=== PATIENT | male | born 1960 | race Caucasian/White ===

== ENCOUNTER → 2017-01-15 | Outpatient (CLI) | payer BC ==
[~2017-01-15] MED LIST: ALEV220C2 PO; BABY81CH OR; CARA1SUS OR; DARV100T OR; HYDR25TA6 OR; HYZA100T6 PO; HYZAAR OR; LOPR100T OR; METO10TA2 OR; OMEP20TA7 OR; OMEP40CA2 PO; POTA10CA PO; PRIL40CA OR; ZANTTAB9 PO
[2017-01-15 10:48] LABS: MEAN CORPUSCULAR HEMOGLOBIN 30.5 pg (27.0-33.0); MEAN CORPUSCULAR HGB CONC 34.3 g/dl (32.0-36.5); RED CELL DISTRIBUTION WIDTH 13.2 % (11.5-14.5); WHITE BLOOD COUNT 6.4 K/mm3 (4.0-10.0)
[2017-01-15 10:54] LABS: INR 0.98
[2017-01-15 11:07] LABS: ALBUMIN 4.6 GM/DL (3.2-5.2); ALBUMIN/GLOBULIN RATIO 1.39 (1.00-1.93); ALKALINE PHOSPHATASE 79 U/L (45-117); ALT/SGPT 117 U/L (12-78); ANION GAP 9 MEQ/L (8-16); AST/SGOT 48 U/L (15-37); BILIRUBIN,TOTAL 0.5 MG/DL (0.2-1.0); BLOOD UREA NITROGEN 20 MG/DL (7-18); CALCIUM LEVEL 9.1 MG/DL (8.5-10.1); CARBON DIOXIDE LEVEL 29 MEQ/L (21-32); CHLORIDE LEVEL 104 MEQ/L (98-107); GLOMERULAR FILTRATION RATE > 60.0 (>56); GLUCOSE, FASTING 108 MG/DL (70-105); POTASSIUM SERUM 3.9 MEQ/L (3.5-5.1); SODIUM LEVEL 142 MEQ/L (136-145); TOTAL PROTEIN 7.9 GM/DL (6.4-8.2)
--- NOTE | 2017-01-15 11:45 | REP ---
Reason: Sleep apnea, gastroesophageal reflux, hypertension. COMPARISON: 02/12/2011, the latest prior. The lung wilks and cardiomediastinal silhouette are unchanged showing no evidence of an acute patchy parenchymal opacity or pleural effusion. The heart is not enlarged. There is no change in the osseous structures. IMPRESSION: No evidence of acute cardiopulmonary disease. No significant change from the prior exam. Bilateral pleural thickening is noted status quo. Signed by Ganga Christensen DO 01/15/2017 11:51 A
--- NOTE | 2017-01-15 13:00 | ECGEPIP ---
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
== END ==
LOC: M ADMPAT 09:19
PROVIDERS: ATTEND Orthopaedic Surgery
DX: Z01.818 Encounter for other preprocedural examination (principal)

== ENCOUNTER 2017-01-27 05:43 | Inpatient (IN) | payer BC ==
[2017-01-15 10:25] VITALS: BP 140/90
--- NOTE | 2017-01-23 14:21 | HPE ---
DATE OF ADMISSION: 01/27/2017 CHIEF COMPLAINT: Right hip pain. HISTORY: This is a pleasant 56-year-old male patient with progressively worsening right hip pain and stiffness. He has failed to improve with conservative treatments to include, activity modification, NSAIDs, and interarticular injection in his right hip. He continues to have symptoms with normal day-to-day activities and work-related activities. He has elected for surgery for his continued symptoms. He has consented for a right total hip arthroplasty by Dr. Holder. X-rays of his right hip notable for end-stage degenerative changes of the right hip. ALLERGIES: PENICILLINS. CURRENT MEDICATIONS: - Aleve 220 mg one tablet twice a day as needed, he knows to discontinue that 5 days prior to surgery - Prilosec 40 mg one tablet twice per day - potassium chloride 10 mEq one tablet as directed - losartan/hydrochlorothiazide 10/25 mg one tablet once per day MEDICAL HISTORY: Includes hypertension, gastric reflux disease and osteoarthritis of the right hip. PAST SURGERIES: Includes pilonidal cyst removal. Otherwise unremarkable. FAMILY HISTORY: Noncontributory. SOCIAL HISTORY: Does not smoke. He rarely uses alcohol. He continues to work. REVIEW OF SYSTEMS: Denies fever or chills. Denies chest pain, shortness of breath or cough. Denies difficulty breathing. Denies abdominal pain. Denies nausea or vomiting. Has persistent pain in his right hip with weightbearing activities and activities of daily living. PHYSICAL EXAMINATION: Today: Reveals a well-nourished, well-developed, alert, male patient. He walks with a limping gait. He favors his right side. Examination of the right hip reveals decreased internal-external rotation of the hip. Straight leg raise testing is negative. He is able to appreciate light touch on exam. The skin is intact. No erythema, edema or ecchymosis around the hip. Neck is supple without adenopathy or JVD. Lungs are clear to auscultation without rales or wheeze. Heart regular rate and rhythm. Abdomen: Bowel sounds are present. Current vital signs: Blood pressure 144/86, pulse 88, respirations 20, height 67 inches, weight 248 pounds, temperature 98.6. EKG is notable for sinus rhythm. Chest x-ray no acute cardiopulmonary process noted. Urinalysis within normal limits. Urine culture no growth. Prothrombin time 13.1, INR 0.98, glucose 120, creatinine 1.0, sodium 142, potassium 3.9. Sedimentation rate is 5. WBC count 6.4, hemoglobin 15.5, hematocrit 45.3. Nasal and sinus culture positive for Staphylococcus aureus. He was treated per the protocol. IMPRESSION: Symptomatic osteoarthritis of his right hip. PLAN: He is consented for a right total hip arthroplasty by Dr. Holder.
[2017-01-27] VITALS (7 sets, daily range): BP systolic 119–154; BP diastolic 70–90
[~2017-01-27] VITALS: Ht 172.7 cm; Wt 108.9 kg
[2017-01-27] MEDS ORDERED: ACETAMINOPHEN 500 MG TAB PO ONE (06:00)
[2017-01-27] MEDS ORDERED: LR 1,000 ML IV SCH ×2 (06:00→10:30)
[2017-01-27] MEDS ORDERED: COUM1TAB17 PO (06:35)
[2017-01-27] MEDS ORDERED: fentaNYL 100 MCG/2 ML INJECTION (J3010) As Ordered ONE (06:52)
[2017-01-27] MEDS ORDERED: LIDOCAINE 2% INJ 100 MG/5 ML SDV (FOR ANES.) As Ordered ONE (06:52)
[2017-01-27] MEDS ORDERED: MIDAZOLAM INJ 2 MG/2 ML VIAL (J2250) As Ordered ONE ×2 (06:52→07:42)
[2017-01-27] MEDS ORDERED: PROPOFOL 200 MG/20 ML VIAL As Ordered ONE (06:52)
[2017-01-27] MEDS ORDERED: ceFAZolin 1GM INJ (J0690) As Ordered ONE (07:15)
[2017-01-27] MEDS ORDERED: ePHEDrine SULFATE 25 MG/5 ML(5MG/ML) SYRINGE As Ordered ONE (08:06)
[2017-01-27] MEDS ORDERED: PHENYLephrine HCL 500 MCG/5 ML (100MCG/ML) SYRINGE (J2370) As Ordered ONE (08:13)
[2017-01-27] MEDS ORDERED: ONDANSETRON 4MG/2ML VIAL (J2405) As Ordered ONE (08:22)
[2017-01-27] MEDS ORDERED: MORPHINE PCA 1MG/ML 100ML CADD As Ordered ONE (10:09)
[2017-01-27] MEDS ORDERED: ACETAMINOPHEN TAB 650MG DOSE (2X325MG) PO PRN (10:15)
[2017-01-27] MEDS ORDERED: FLEET ENEMA PR PRN (10:15)
[2017-01-27] MEDS ORDERED: ONDANSETRON 4MG/2ML VIAL (J2405) IV PRN (10:30)
[2017-01-27] MEDS ORDERED: PERCOCET 5MG/325MG TAB PO PRN (10:30)
[2017-01-27] MEDS ORDERED: diphenhydrAMINE INJ 50MG/ML VIAL (J1200) IV PRN (10:30)
[2017-01-27] MEDS ORDERED: MORPHINE PCA 1MG/ML 100ML CADD IV PRN (10:30)
[2017-01-27] MEDS ORDERED: NALOXONE INJ 0.4 MG/1 ML VIAL (J2310) IV PRN (10:30)
[2017-01-27] MEDS ORDERED: EPIDURAL/PCA KEYS XX PRN (10:30)
[2017-01-27] MEDS ORDERED: fentaNYL 100 MCG/2 ML INJECTION (J3010) IV PRN (10:30)
[2017-01-27] MEDS ORDERED: HYDROmorphone HCL 1 MG/ML SYRINGE (J1170) IV PRN (10:30)
[2017-01-27] MEDS ORDERED: NALBUPHINE HCL 10 MG/ML AMP (J2300) IV PRN (10:30)
[2017-01-27] MEDS: ONDANSETRON 4MG/2ML VIAL (J2405) IV PRN ×2 (14:30→20:33)
--- NOTE | 2017-01-27 15:40 | IPNPDOC ---
Subjective Date Seen The patient was seen on 01/27/17. Subjective Chief Complaint/HPI The patient is a 56-year-old male admitted with a reason for visit of Arthritis Right Hip. Constitutional: Denies: Chills, Fever Pulmonary: Denies: Cough, Dyspnea, Pleuritic Chest Pain Cardiovascular: Denies: Chest Pain, Orthopnea, Palpitations Gastrointestinal: Reports: Nausea (nausea since returning from surgery.), Vomiting (50 cc emesis noted.), Denies: Abdominal Pain Genitourinary: Denies: Frequency Hematologic: Denies: Bleeding Excessively, Bruising, Petecchia Endocrine: Denies: Polydipsia, Polyphagia, Polyuria Psych: Reports: Mood Normal, Denies: Depression Objective Physical Examination General Exam: Positive: No Acute Distress Eye Exam: Positive: Conjunctiva & lids normal, PERRLA ENT Exam: Positive: Mucous membr. moist/pink, Tongue Midline Neck Exam: Positive: Supple, Negative: JVD Chest Exam: Positive: Clear to auscultation, Normal air movement, Negative: Rales, Rhonchi, Wheezing Heart Exam: Positive: Normal S1, Normal S2, Rate Normal, Negative: Gallops, Murmurs Abdomen Exam: Positive: Soft, Negative: Hepatospenomegaly, Mass, Tenderness Extremity Exam: Negative: Clubbing, Cyanosis, Edema Skin Exam: Positive: Nl turgor and temperature, Negative: Rash Psych Exam: Positive: Oriented x 3 Assessment /Plan Problems (1) Status post total hip replacement, right Onset Date: 01/27/2017 Status: Acute Problem Specific Plan: Monitor Clinically Problem Text: Pain right hip as expected, post op. (2) Essential hypertension Status: Chronic Response to Treatment: Stable, Controlled Problem Specific Plan: Monitor Clinically Problem Text: continue losartan/hctz at usual dose. (3) GERD (gastroesophageal reflux disease) Status: Chronic Response to Treatment: Stable Problem Specific Plan: Monitor Clinically Problem Text: omeprazole added, usually uses ranitidine at home and omeprazole. will add pepcid while in hospital (4) DVT prophylaxis Status: Acute Problem Specific Plan: Consult Specialist Problem Text: Managed per ortho, post surgically. Plan/VTE VTE Prophylaxis Ordered?: Yes (DVT prophylaxis ordered per Ortho protocol post surgery.) Plan Diagnostics: Repeat Labs in AM Anticipated Discharge[facility]O Vital Signs Date Time Temp Pulse Resp B/P Pulse Ox O2 Delivery O2 Flow Rate FiO2 01/27/17 14:15 97.1 84 14 130/72 98 Nasal Cannula 2.0 Mario Baker MD Jan 27, 2017 15:40
[2017-01-27] MEDS: POTASSIUM CHLORIDE 10 MEQ SR TABLET PO SCH (16:12)
[2017-01-27] MEDS: hydroCHLOROthiazide 25 MG TAB PO SCH (16:13)
[2017-01-27] MEDS: LOSARTAN 50 MG TAB PO SCH (16:13)
[2017-01-27] MEDS: LR 1,000 ML IV SCH ×2 (16:14→22:45)
[2017-01-27] MEDS ORDERED: WARFARIN SOD 5 MG TAB PO ONE (17:00)
--- NOTE | 2017-01-27 20:14 | RO ---
DATE OF PROCEDURE: 01/27/2017 PREPROCEDURE DIAGNOSIS: Right hip degenerative arthritis. POSTPROCEDURE DIAGNOSIS: Right hip degenerative arthritis. PROCEDURE: Right total hip arthroplasty using a high offset #5 [place] stem with a 36 mm head with +8.5 neck and a 56 mm cup with a 36 mm neutral polyethylene liner. SURGEON: Dr. Michelle Holder GAS SYSTEM OPERATOR: Mr. Eleuetrio Antonio ANESTHESIA: Spinal. COMPLICATIONS: None. ESTIMATED BLOOD LOSS: 200 mL SPECIMENS: Femoral head. DESCRIPTION OF PROCEDURE: Antibiotics were given intravenously preoperatively, then successful spinal anesthetic was induced, Bella catheter was placed. He was then placed in a lateral decubitus position with a [place] hip positioner, right hip upper most, down leg well padded, especially the peroneal nerve, axillary roll was utilized. The right hip area was then prepped and draped in the usual sterile fashion, and after an appropriate time-out, a longitudinal incision was made for a direct lateral approach to the hip. Bovie cautery was used to coagulate crossing vessels down to the tensor fascia, which was divided in line with the skin incision. We then split the gluteus medius, the anterior one-third, posterior two-third junction and then underlying this divided the gluteus minimus and the hip capsule and then debrided these tissues off the anterior aspect of the trochanter and then dislocated the hip and placed the leg in a leg bag anteriorly. Starter reamer was placed into the piriformis fossa followed by the canal finding reamer, then the lateralizing reamer, then we reamed up to a #5 reamer. Femoral neck osteotomy performed using the broach and then we broached up to a size #5. We then exposed the acetabulum. He had a large number of significant sized loose fragments within the joints that were removed with a rongeur as well as the pulvinar tissue, the labrum was excised 360 degrees. We then began reaming, beginning with 47 mm reamer. We reamed down to the normal [place] floor. He was quite lateralized with a large floor osteophyte, but eventually we were able to deepen the acetabulum back to what I felt to be normal anatomy and then expanded the reamings up to 55 mm. A 56 mm trial fit nicely, thus I placed a 56 cup after copiously irrigating and then I removed the very large anterior and inferior osteophytes with an osteotome and rongeur and then placed the real polyethylene. We then exposed the femoral canal, irrigated copiously, placed a #5 broach, followed by the high offset +5 head, reduced the hip. He was very stable to flexion internal rotation as well as extension external rotation, but there was a fair amount of play and telescoping noted in mid flexion and he was quite short preoperatively. Thus, I felt it best to go up to a size 8.5 neck and thus, this was trialed and he had less telescoping with the 8.5. Thus, I removed the trial broach and then copiously irrigated out the femoral canal, placed the real #5 stem, followed by the +8.5, 36 mm ceramic head and then I reduced the hip after copiously irrigating. We then began closing the gluteus minimus and anterior hip capsule back to the trochanter anatomically with interrupted #1 PDS sutures and then also closed the gluteus medius back in an anatomic position to the greater trochanter with interrupted #1 PDS sutures, irrigating between layers, then closed the tensor fascia with a combination of interrupted #1 PDS sutures and a running #1 Stratafix. We irrigated again and then closed the deep subdermal tissues with interrupted #2-0 PDS sutures, skin was closed with alana, covered by Adaptic dry sterile bulky dressing. He was then turned supine and then transferred to the recovery room in stable condition. There were no intraoperative complications. Mr. Luciadorina was critical to the success of the procedure by helping to manipulate the leg and reduce and dislocate the hip several times throughout the operation, helped with appropriate soft tissue retraction, helped to close the wound, helped position the patient preoperatively, amongst several other tasks.
[2017-01-27] MEDS: FAMOTIDINE 20 MG TAB PO SCH (20:31)
[2017-01-28 02:00] VITALS: BP 142/90
[2017-01-28 06:00] VITALS: BP 145/81
[2017-01-28] MEDS ORDERED: PERCOCET 5MG/325MG TAB PO PRN (06:45)
[2017-01-28 08:23] LABS: INR 1.31
[2017-01-28 08:26] LABS: MEAN CORPUSCULAR HGB CONC 34.1 g/dl (32.0-36.5); RED CELL DISTRIBUTION WIDTH 13.3 % (11.5-14.5); WHITE BLOOD COUNT 9.5 K/mm3 (4.0-10.0)
[2017-01-28 08:29] LABS: ANION GAP 8 MEQ/L (8-16); BLOOD UREA NITROGEN 18 MG/DL (7-18); CALCIUM LEVEL 8.3 MG/DL (8.5-10.1); CARBON DIOXIDE LEVEL 30 MEQ/L (21-32); CHLORIDE LEVEL 102 MEQ/L (98-107); CREATININE FOR GFR 0.81 MG/DL (0.70-1.30); GLOMERULAR FILTRATION RATE > 60.0 (>56); GLUCOSE, FASTING 144 MG/DL (70-105); POTASSIUM SERUM 3.9 MEQ/L (3.5-5.1); SODIUM LEVEL 140 MEQ/L (136-145)
[2017-01-28] MEDS: MOM 30ML SUSPENSION UDC PO SCH (09:49)
[2017-01-28] MEDS: MIRALAX *UNIT DOSE* 17GM PACKET PO SCH (09:49)
[2017-01-28] MEDS: FAMOTIDINE 20 MG TAB PO SCH ×2 (09:49→20:02)
[2017-01-28] MEDS: hydroCHLOROthiazide 25 MG TAB PO SCH (09:49)
[2017-01-28] MEDS: OMEPRAZOLE 20 MG CAP PO SCH (09:50)
[2017-01-28] MEDS: PERCOCET 5MG/325MG TAB PO PRN ×3 (09:50→20:04)
[2017-01-28] MEDS: LOSARTAN 50 MG TAB PO SCH (09:51)
[2017-01-28] MEDS: POTASSIUM CHLORIDE 10 MEQ SR TABLET PO SCH (09:52)
[2017-01-28] MEDS: SENOKOT S TAB PO SCH ×2 (09:54→20:02)
[2017-01-28] MEDS: ONDANSETRON 4 MG TAB (S0181) PO PRN ×2 (09:56→19:06)
--- NOTE | 2017-01-28 10:40 | REP ---
RIGHT HIP SERIES, COMPLETE: 01/28/2017 Comparison 03/24/2013. Two-view show a right total hip arthroplasty with the prosthetic components well-aligned in relationship to the [place] bone and each other. There is no fracture, avulsion or destructive lesion evident. IMPRESSION: 14. Status post right total hip arthroplasty with normal alignment of the two components in relationship to each other and the [place] bone. Signed by Saji Salmon MD 01/28/2017 06:35 P
[2017-01-28 14:00] VITALS: BP 148/78
[2017-01-28] MEDS ORDERED: WARFARIN SOD 5 MG TAB PO ONE (17:00)
[2017-01-28 22:00] VITALS: BP 133/79
[2017-01-29] MEDS: PERCOCET 5MG/325MG TAB PO PRN ×3 (00:43→14:26)
[2017-01-29 06:00] VITALS: BP 133/81
[2017-01-29 07:18] LABS: MEAN CORPUSCULAR HEMOGLOBIN 30.8 pg (27.0-33.0); MEAN CORPUSCULAR HGB CONC 35.1 g/dl (32.0-36.5); MEAN CORPUSCULAR VOLUME 87.6 fl (80.0-96.0); RED CELL DISTRIBUTION WIDTH 13.4 % (11.5-14.5); WHITE BLOOD COUNT 6.1 K/mm3 (4.0-10.0)
[2017-01-29 07:25] LABS: INR 1.4
[2017-01-29] MEDS ORDERED: PERC5TAB6 PO (08:22)
[2017-01-29] MEDS ORDERED: COUM2.5T11 PO (08:22)
[2017-01-29] MEDS: POTASSIUM CHLORIDE 10 MEQ SR TABLET PO SCH (09:00)
[2017-01-29] MEDS: MIRALAX *UNIT DOSE* 17GM PACKET PO SCH (10:23)
[2017-01-29] MEDS: MOM 30ML SUSPENSION UDC PO SCH (10:23)
[2017-01-29 10:24] VITALS: BP 133/81
[2017-01-29] MEDS: OMEPRAZOLE 20 MG CAP PO SCH (10:24)
[2017-01-29] MEDS: LOSARTAN 50 MG TAB PO SCH (10:24)
[2017-01-29] MEDS: hydroCHLOROthiazide 25 MG TAB PO SCH (10:24)
[2017-01-29] MEDS: SENOKOT S TAB PO SCH (10:25)
[2017-01-29] MEDS: FAMOTIDINE 20 MG TAB PO SCH (10:26)
--- NOTE | 2017-01-29 14:01 | IPNPDOC ---
Subjective Date Seen The patient was seen on 01/29/17. Subjective Chief Complaint/HPI The patient is a 56-year-old male admitted with a reason for visit of Arthritis Right Hip. Constitutional: Denies: Chills, Fever Pulmonary: Denies: Cough, Dyspnea, Pleuritic Chest Pain Cardiovascular: Denies: Chest Pain, Orthopnea, Paroxysmal Noc. Dyspnea Gastrointestinal: Denies: Abdominal Pain, Nausea Genitourinary: Denies: Dysuria Musculoskeletal: Reports: Other Symptoms (tolerable right hip discomfort at surgery site) Neurological: Denies: Change in speech, Confusion, Numbness, Other Symptoms Objective Physical Examination General Exam: Positive: No Acute Distress Eye Exam: Positive: Conjunctiva & lids normal, PERRLA ENT Exam: Positive: Mucous membr. moist/pink, Tongue Midline Neck Exam: Positive: Supple, Negative: JVD Chest Exam: Positive: Clear to auscultation, Normal air movement, Negative: Rales, Rhonchi, Wheezing Heart Exam: Positive: Normal S1, Normal S2, Rate Normal, Negative: Gallops, Murmurs Abdomen Exam: Positive: Soft, Negative: Hepatospenomegaly, Mass, Tenderness Extremity Exam: Negative: Clubbing, Cyanosis, Edema Skin Exam: Positive: Nl turgor and temperature, Negative: Rash Psych Exam: Positive: Oriented x 3 Assessment /Plan Problems (1) Status post total hip replacement, right Onset Date: 01/27/2017 Status: Acute Problem Specific Plan: Monitor Clinically Problem Text: Pain right hip as expected, post op. Seems to be doing well and ready for d/c (2) Essential hypertension Status: Chronic Response to Treatment: Stable, Controlled Problem Specific Plan: Monitor Clinically Problem Text: continue losartan/hctz at usual dose. pressure control is OK (3) GERD (gastroesophageal reflux disease) Status: Chronic Response to Treatment: Stable Problem Specific Plan: Monitor Clinically Problem Text: omeprazole added, usually uses ranitidine at home and omeprazole. will add pepcid while in hospital (4) DVT prophylaxis Status: Acute Problem Specific Plan: Consult Specialist Problem Text: Managed per ortho, post surgically. Plan/VTE VTE Prophylaxis Ordered?: Yes (DVT prophylaxis ordered per Ortho protocol post surgery.) Plan Diagnostics: Repeat Labs in AM Anticipated Discharge: Home Candidate for referral for MAL eval after discharge. VS, I&O, 24H, [facility]bone Vital Signs/I&O Vital Signs Date Time Temp Pulse Resp B/P Pulse Ox O2 Delivery O2 Flow Rate FiO2 01/29/17 10:24 133/81 01/29/17 08:00 Room Air 01/29/17 06:49 2.0 01/29/17 06:40 18 01/29/17 06:00 99.7 101 95 I&O- Last 24 Hours up to 6 AM 01/29/17 06:00 Intake Total 960 ml Output Total 1100 ml Balance -140 ml Laboratory Data 24H LABS Laboratory Tests 2 01/29/17 07:02: Prothromb Time International Ratio 1.40, Prothrombin Time 17.3H CBC/BMP Laboratory Tests 01/29/17 07:02 Red Blood Count 3.93 L, Mean Corpuscular Volume 87.6, Mean Corpuscular Hemoglobin 30.8, Mean Corpuscular Hemoglobin Concent 35.1, Red Cell Distribution Width 13.4 Mario Baker MD Jan 29, 2017 14:01
--- NOTE | 2017-02-02 13:28 | DSES ---
DATE OF ADMISSION: 01/27/2017 DATE OF DISCHARGE: 01/29/2017 ATTENDING: Michelle Centeno MD ADMISSION DIAGNOSIS: Osteoarthritis right hip. OTHER DIAGNOSES: Hypertension and gastric reflux disease. DISCHARGE DIAGNOSIS: Osteoarthritis right hip status post right total hip arthroplasty. HISTORY: This is a pleasant, 56-year-old male patient with progressively worsening right hip pain and stiffness. He failed to improve with conservative management. He was admitted for elective hip replacement on the right side. OPERATION PERFORMED: Right total hip arthroplasty. HOSPITAL COURSE: Patient was admitted on day of surgery, underwent a right total hip arthroplasty, which was uneventful. He did well in the postoperative period. His hospital course was without complications. He was up with physical therapy per their protocol and his pain was controlled. On day of discharge, he was doing well weightbearing as tolerated on his right lower extremity. He will use adjusted dose Coumadin and thromboembolic deterrent (MORAIMA) stockings for 30 days postoperatively for deep venous thrombosis (DVT) prophylaxis. He will use oral pain medications for pain control. He will resume his preoperative medication and diet. He was given instructions to include but not limited to wound monitoring and activity limitations. He will followup in our office in 10-14 days in surgical followup. Please refer to the medical record for further details.
== END 2017-01-29 14:55 | disposition home or self-care (01) | DRG 301 ==
LOC: M OR 05:43 → M MS5PR 12:50
PROVIDERS: ADMIT Orthopaedic Surgery; ATTEND Orthopaedic Surgery
PROC: 0SR902A Replacement of Right Hip Joint with Metal on Polyethylene Synthetic Substitute, Uncemented, Open Approach (ICD-10-PCS; principal; 2017-01-27 07:30)
DX: M16.11 Unilateral primary osteoarthritis, right hip (principal); I10 Essential (primary) hypertension; R11.2 Nausea with vomiting, unspecified; K21.9 Gastro-esophageal reflux disease without esophagitis; Z88.0 Allergy status to penicillin; Z79.899 Other long term (current) drug therapy

== ENCOUNTER → 2017-02-03 | Outpatient (REF) | payer BC ==
[~2017-02-03] MED LIST changes: +COUM1TAB17 PO; +COUM2.5T11 PO; +PERC5TAB6 PO
[2017-02-03 14:58] LABS: INR 2.72
== END ==
LOC: M LAB REF 14:30
PROVIDERS: ATTEND Orthopaedic Surgery
DX: Z79.01 Long term (current) use of anticoagulants (principal)

== ENCOUNTER → 2017-02-09 | Outpatient (REF) | payer BC ==
[2017-02-09 13:42] LABS: INR 1.18
== END ==
LOC: M LABDRAW1 13:14
PROVIDERS: ATTEND Orthopaedic Surgery
DX: Z79.01 Long term (current) use of anticoagulants (principal)

== ENCOUNTER → 2017-02-16 | Outpatient (REF) | payer BC ==
[2017-02-16 14:07] LABS: INR 1.91
== END ==
LOC: M SHH 13:40
PROVIDERS: ATTEND Orthopaedic Surgery
DX: Z51.81 Encounter for therapeutic drug level monitoring (principal); Z79.01 Long term (current) use of anticoagulants

== ENCOUNTER → 2017-02-19 | Outpatient (REF) | payer BC ==
[2017-02-19 13:46] LABS: INR 1.91
== END ==
LOC: M SHH 13:05
PROVIDERS: ATTEND Orthopaedic Surgery
DX: Z51.81 Encounter for therapeutic drug level monitoring (principal); Z79.01 Long term (current) use of anticoagulants; Z47.89 Encounter for other orthopedic aftercare

== ENCOUNTER → 2017-02-23 | Outpatient (REF) | payer BC ==
[2017-02-23 12:25] LABS: INR 2.04
== END ==
LOC: M SHH 11:55
PROVIDERS: ATTEND Orthopaedic Surgery
DX: Z51.81 Encounter for therapeutic drug level monitoring (principal); Z79.01 Long term (current) use of anticoagulants

== ENCOUNTER → 2017-07-23 | Outpatient (REF) | payer BC ==
[~2017-07-23] MED LIST changes: -COUM2.5T11 PO; +COUM2.5T17 PO; +PERC5TAB12 PO; -PERC5TAB6 PO
== END ==
LOC: M SFHCCLAY 07:47
PROVIDERS: ATTEND Family Medicine
DX: E78.00 Pure hypercholesterolemia, unspecified (principal)

== ENCOUNTER → 2018-08-26 | Outpatient (CLI) | payer BC | LOC: M SLEEP 19:43 | DX: G47.33 Obstructive sleep apnea (adult) (pediatric) (principal) | CPT/HCPCS: 95811 ==

== ENCOUNTER → 2020-05-23 | Outpatient (REF) | payer BC ==
[~2020-05-23] MED LIST changes: +KLOR10TA76 PO; -OMEP40CA2 PO; +OMEP40CA97 PO; -POTA10CA PO
[2020-05-23 16:55] LABS: BLOOD UREA NITROGEN 20 MG/DL (7-18); CALCIUM LEVEL 9.2 MG/DL (8.8-10.2); CARBON DIOXIDE LEVEL 30 MEQ/L (21-32); CHLORIDE LEVEL 108 MEQ/L (98-107); CREATININE FOR GFR 0.97 MG/DL (0.70-1.30); GLOMERULAR FILTRATION RATE > 60.0 (>49); GLUCOSE, FASTING 124 MG/DL (70-100); POTASSIUM SERUM 4.9 MEQ/L (3.5-5.1); SODIUM LEVEL 142 MEQ/L (136-145)
== END ==
LOC: M SFHCCLAY 11:31
PROVIDERS: ATTEND Family Medicine
DX: I10 Essential (primary) hypertension (principal)

== ENCOUNTER → 2021-04-19 | Outpatient (REF) | payer BC ==
[2021-04-19 17:11] LABS: BASO % 0.6 % (0.0-1.0); EOS # 0.2 10^3/uL (0.0-0.5); EOS % 3.3 % (0.0-3.0); HEMATOCRIT 47.8 % (42.0-52.0); HEMOGLOBIN 15.5 g/dl (13.5-17.5); LYMPH # 1.4 10^3/uL (1.5-5.0); LYMPH % 20.9 % (24.0-44.0); MEAN CORPUSCULAR HEMOGLOBIN 29.8 pg (27.0-33.0); MEAN CORPUSCULAR HGB CONC 32.4 g/dl (32.0-36.5); MEAN CORPUSCULAR VOLUME 91.7 fl (80.0-96.0); MONO # 0.6 10^3/uL (0.0-0.8); MONO % 8.8 % (2.0-8.0); NEUTROPHILS # 4.5 10^3/uL (1.5-8.5); NEUTROPHILS % 66.1 % (36.0-66.0); PLATELET COUNT, AUTOMATED 183 10^3/uL (150-450); RED BLOOD COUNT 5.21 10^6/uL (4.30-6.10); WHITE BLOOD COUNT 6.7 10^3/uL (4.0-10.0)
[2021-04-19 17:15] LABS: BLOOD UREA NITROGEN 14 MG/DL (7-18); CALCIUM LEVEL 8.9 MG/DL (8.8-10.2); CARBON DIOXIDE LEVEL 34 MEQ/L (21-32); CHLORIDE LEVEL 107 MEQ/L (98-107); CREATININE FOR GFR 0.93 MG/DL (0.70-1.30); GLOMERULAR FILTRATION RATE > 60.0 (>49); GLUCOSE, FASTING 156 MG/DL (70-100); IRON (FE) 66 UG/DL (65-175); PERCENT SATURATION 20.8 % (19.7-50.0); POTASSIUM SERUM 5.2 MEQ/L (3.5-5.1); SODIUM LEVEL 142 MEQ/L (136-145); TOTAL IRON BINDING CAPACITY 317 UG/DL (250-450)
== END ==
LOC: M SFHCCLAY 07:22
PROVIDERS: ATTEND Family Medicine
DX: I10 Essential (primary) hypertension (principal); Z87.19 Personal history of other diseases of the digestive system

== ENCOUNTER → 2022-04-28 | Outpatient (REF) | payer BC ==
[~2022-04-28] MED LIST changes: -KLOR10TA76 PO; +OMEP40CA4 PO; -OMEP40CA97 PO; +POTA-136 PO
[2022-04-28 11:51] LABS: BASO # 0.1 10^3/uL (0.0-0.2); BASO % 0.8 % (0.0-1.0); EOS # 0.2 10^3/uL (0.0-0.5); HEMATOCRIT 48.1 % (42.0-52.0); HEMOGLOBIN 16.3 g/dl (13.5-17.5); LYMPH # 1.5 10^3/uL (1.5-5.0); MEAN CORPUSCULAR HEMOGLOBIN 29.7 pg (27.0-33.0); MEAN CORPUSCULAR HGB CONC 33.9 g/dl (32.0-36.5); MEAN CORPUSCULAR VOLUME 87.6 fl (80.0-96.0); MONO # 0.5 10^3/uL (0.0-0.8); MONO % 7.3 % (2.0-8.0); NEUTROPHILS # 4.2 10^3/uL (1.5-8.5); NEUTROPHILS % 65.7 % (36.0-66.0); PLATELET COUNT, AUTOMATED 156 10^3/uL (150-450); RED BLOOD COUNT 5.49 10^6/uL (4.30-6.10); WHITE BLOOD COUNT 6.3 10^3/uL (4.0-10.0)
[2022-04-28 12:31] LABS: ALBUMIN 3.7 GM/DL (3.2-5.2); ALT/SGPT 41 U/L (12-78); BILIRUBIN,TOTAL 0.5 MG/DL (0.2-1.0); BLOOD UREA NITROGEN 17 MG/DL (7-18); CALCIUM LEVEL 9.7 MG/DL (8.8-10.2); CARBON DIOXIDE LEVEL 29 MEQ/L (21-32); CHLORIDE LEVEL 103 MEQ/L (98-107); CHOLESTEROL LEVEL 154 MG/DL (<200); CREATININE FOR GFR 0.98 MG/DL (0.70-1.30); FERRITIN 51 NG/ML (26-388); FREE T4 1.17 NG/DL (0.76-1.46); GLOMERULAR FILTRATION RATE > 60.0 (>49); GLUCOSE, FASTING 386 MG/DL (70-100); HDL CHOLESTEROL 25 MG/DL (>40); IRON (FE) 77 UG/DL (65-175); NON-HDL-C 129 MG/DL; PERCENT SATURATION 19.5 % (19.7-50.0); POTASSIUM SERUM 4.7 MEQ/L (3.5-5.1); SODIUM LEVEL 140 MEQ/L (136-145); TOTAL IRON BINDING CAPACITY 394 UG/DL (250-450); TOTAL PROTEIN 7.4 GM/DL (6.4-8.2); TRIGLYCERIDES LEVEL 436 MG/DL (<150)
== END ==
LOC: M SFHCCLAY 07:35
PROVIDERS: ATTEND Family Medicine
DX: I10 Essential (primary) hypertension (principal); R73.01 Impaired fasting glucose; Z87.19 Personal history of other diseases of the digestive system

== ENCOUNTER → 2022-08-17 | Outpatient (CLI) | payer BC ==
[~2022-08-17] MED LIST changes: +ATOR1TAB21 PO; +ECOT81TA5 PO; +ESCI5SOL3 PO; +LOSA50TA5; +METF-838 PO; +METO1TAB32 PO; +OMEP40CA5 PO
== END ==
LOC: M LABSMTC 11:16
PROVIDERS: ATTEND Anesthesiology
DX: Z01.812 Encounter for preprocedural laboratory examination (principal); Z20.822 Contact with and (suspected) exposure to COVID-19

== ENCOUNTER 2022-08-21 07:01 | Day surgery (SDC) | payer BC ==
[~2022-08-21] VITALS: Ht 170.2 cm; Wt 110.2 kg
[~2022-08-21 07:01] MED LIST changes: +NS 1,000 ML IV ONE
[2022-08-21] MEDS ORDERED: propofoL 200 MG/20 ML VIAL As Ordered ONE (07:07)
[2022-08-21] MEDS ORDERED: LIDOCAINE 2% 100MG/5ML SDV (FOR ANES.) As Ordered ONE (07:07)
[2022-08-21] MEDS ORDERED: fentaNYL 100 MCG/2 ML INJECTION As Ordered ONE (07:40)
[2022-08-21 08:57] VITALS: BP 117/70
== END 2022-08-21 09:14 | disposition home or self-care (01) ==
LOC: M OPP 07:01
PROVIDERS: ATTEND Surgery
DX: Z12.11 Encounter for screening for malignant neoplasm of colon (principal); Z86.010 Personal history of colon polyps; K63.5 Polyp of colon; K62.89 Other specified diseases of anus and rectum; K57.30 Diverticulosis of large intestine without perforation or abscess without bleeding; K44.9 Diaphragmatic hernia without obstruction or gangrene; K31.89 Other diseases of stomach and duodenum; Z79.02 Long term (current) use of antithrombotics/antiplatelets; Z79.82 Long term (current) use of aspirin; Z79.84 Long term (current) use of oral hypoglycemic drugs; Z79.899 Other long term (current) drug therapy; I10 Essential (primary) hypertension; E11.9 Type 2 diabetes mellitus without complications; E78.00 Pure hypercholesterolemia, unspecified; G47.30 Sleep apnea, unspecified; Z80.0 Family history of malignant neoplasm of digestive organs; Z88.5 Allergy status to narcotic agent; I25.2 Old myocardial infarction; Z95.0 Presence of cardiac pacemaker; Z87.891 Personal history of nicotine dependence; Z87.19 Personal history of other diseases of the digestive system
CPT/HCPCS: 43235; 45380; 45385; 88305; J3010

== ENCOUNTER → 2023-08-19 | Outpatient (REF) | payer BC ==
[~2023-08-19] MED LIST changes: -HYZA100T6 PO; +LOSA-536 PO; -NS 1,000 ML IV ONE
[2023-08-19 12:10] LABS: PERCENT SATURATION 17.4 % (19.7-50.0)
[2023-08-19 12:13] LABS: FOLATE 14.74 NG/ML (>5.4)
[2023-08-19 12:16] LABS: CHOLESTEROL RISK RATIO 4.3 (<5); HDL CHOLESTEROL 35.8 MG/DL (>40); LDL CHOLESTEROL 86.6 MG/DL (<100); NON-HDL-C 118.2 MG/DL
== END ==
LOC: M SFHCCLAY 07:38
PROVIDERS: ATTEND Family Medicine
DX: D64.9 Anemia, unspecified (principal)

== ENCOUNTER → 2024-05-03 | Outpatient (REF) | payer BC ==
[2024-05-03 19:11] LABS: BASO # 0.1 10^3/uL (0.0-0.2); BASO % 0.9 % (0.0-1.0); EOS # 0.2 10^3/uL (0.0-0.5); EOS % 2.7 % (0.0-3.0); HEMATOCRIT 35.6 % (42.0-52.0); HEMOGLOBIN 11.3 g/dl (13.5-17.5); LYMPH # 1.3 10^3/uL (1.5-5.0); LYMPH % 23.6 % (24.0-44.0); MEAN CORPUSCULAR HEMOGLOBIN 26.7 pg (27.0-33.0); MEAN CORPUSCULAR HGB CONC 31.7 g/dl (32.0-36.5); MONO # 0.4 10^3/uL (0.0-0.8); MONO % 7.6 % (2.0-8.0); NEUTROPHILS # 3.7 10^3/uL (1.5-8.5); PLATELET COUNT, AUTOMATED 180 10^3/uL (150-450); RED BLOOD COUNT 4.24 10^6/uL (4.30-6.10); WHITE BLOOD COUNT 5.6 10^3/uL (4.0-10.0)
[2024-05-03 19:40] LABS: ALBUMIN 3.9 G/DL (3.2-5.2); ALKALINE PHOSPHATASE 71 U/L (46-116); ALT/SGPT 29 U/L (7.0-40); AST/SGOT 25 U/L (<34); BILIRUBIN,TOTAL 0.4 MG/DL (0.3-1.2); BLOOD UREA NITROGEN 22 MG/DL (9-23); CALCIUM LEVEL 9.8 MG/DL (8.3-10.6); CARBON DIOXIDE LEVEL 31 MMOL/L (20-31); CHLORIDE LEVEL 109 MMOL/L (98-107); CHOLESTEROL LEVEL 118 MG/DL (<200); CHOLESTEROL RISK RATIO 3.37 (<5); CREATININE FOR GFR 1.01 MG/DL (0.70-1.30); GLOMERULAR FILTRATION RATE > 60.0 (>49); GLUCOSE, FASTING 93 MG/DL (74-106); LDL CHOLESTEROL 57.4 MG/DL (<100); POTASSIUM SERUM 5.1 MMOL/L (3.5-5.1); SODIUM LEVEL 141 MMOL/L (136-145); TOTAL PROTEIN 6.9 G/DL (5.7-8.2); TRIGLYCERIDES LEVEL 128 MG/DL (<150)
== END ==
LOC: M SFHCCLAY 13:44
PROVIDERS: ATTEND Family Medicine
DX: K21.9 Gastro-esophageal reflux disease without esophagitis (principal); I10 Essential (primary) hypertension; I25.2 Old myocardial infarction; E11.9 Type 2 diabetes mellitus without complications

== ENCOUNTER → 2024-08-02 | Outpatient (CLI) | payer BC | LOC: M CLY 08:46 | PROVIDERS: ATTEND Family Medicine | DX: R05.9 Cough, unspecified (principal) ==

== ENCOUNTER → 2024-08-02 | Outpatient (REF) | payer BC ==
[2024-08-02 12:09] LABS: RSV AMPLIFICATION NEGATIVE (NEGATIVE)
[2024-08-02 19:23] LABS: BASO % 0.5 % (0.0-1.0); EOS # 0.1 10^3/uL (0.0-0.5); EOS % 1.3 % (0.0-3.0); HEMATOCRIT 37.5 % (42.0-52.0); HEMOGLOBIN 11.8 g/dl (13.5-17.5); LYMPH # 0.7 10^3/uL (1.5-5.0); LYMPH % 9.7 % (24.0-44.0); MEAN CORPUSCULAR HEMOGLOBIN 27.3 pg (27.0-33.0); MEAN CORPUSCULAR HGB CONC 31.5 g/dl (32.0-36.5); MEAN CORPUSCULAR VOLUME 86.8 fl (80.0-96.0); MONO # 0.8 10^3/uL (0.0-0.8); MONO % 10.5 % (2.0-8.0); NEUTROPHILS % 77.9 % (36.0-66.0); PLATELET COUNT, AUTOMATED 202 10^3/uL (150-450); RED BLOOD COUNT 4.32 10^6/uL (4.30-6.10); WHITE BLOOD COUNT 7.7 10^3/uL (4.0-10.0)
[2024-08-02 19:36] LABS: HEMOGLOBIN A1c 5.5 % (4.0-6.0)
[2024-08-02 19:40] LABS: ALBUMIN 3.9 G/DL (3.2-5.2); ALKALINE PHOSPHATASE 68 U/L (46-116); ALT/SGPT 24 U/L (7.0-40); AST/SGOT 17 U/L (<34); BILIRUBIN,TOTAL 0.9 MG/DL (0.3-1.2); BLOOD UREA NITROGEN 15 MG/DL (9-23); CALCIUM LEVEL 9.2 MG/DL (8.3-10.6); CARBON DIOXIDE LEVEL 29 MMOL/L (20-31); CHLORIDE LEVEL 107 MMOL/L (98-107); CREATININE FOR GFR 0.93 MG/DL (0.70-1.30); GLOMERULAR FILTRATION RATE > 60.0 (>49); GLUCOSE, FASTING 117 MG/DL (74-106); POTASSIUM SERUM 3.6 MMOL/L (3.5-5.1); SODIUM LEVEL 143 MMOL/L (136-145); TOTAL PROTEIN 7.2 G/DL (5.7-8.2)
== END ==
LOC: M SFHCCLAY 08:25
PROVIDERS: ATTEND Family Medicine
DX: K21.9 Gastro-esophageal reflux disease without esophagitis (principal); I10 Essential (primary) hypertension; I25.2 Old myocardial infarction; E11.9 Type 2 diabetes mellitus without complications; B34.9 Viral infection, unspecified

== ENCOUNTER → 2025-03-08 | Outpatient (REF) | payer BC | LOC: M SFHCCLAY 09:06 | PROVIDERS: ATTEND Nurse Practitioner Family | DX: Z53.9 Procedure and treatment not carried out, unspecified reason (principal) ==

== ENCOUNTER → 2025-06-29 | Outpatient (REF) | payer MEDICARE ==
[2025-06-29 18:18] LABS: BASO # 0.1 10^3/uL (0.0-0.2); BASO % 1.0 % (0.0-1.0); EOS # 0.2 10^3/uL (0.0-0.5); EOS % 2.6 % (0.0-3.0); LYMPH # 1.4 10^3/uL (1.5-5.0); LYMPH % 21.9 % (24.0-44.0); MONO # 0.5 10^3/uL (0.0-0.8); MONO % 8.0 % (2.0-8.0); NEUTROPHILS # 4.1 10^3/uL (1.5-8.5); NEUTROPHILS % 66.3 % (36.0-66.0); PLATELET COUNT, AUTOMATED 192 10^3/uL (150-450)
[2025-06-29 18:21] LABS: PSA SCREENING 0.54 NG/ML (< 4.00)
[2025-06-29 18:26] LABS: ALT/SGPT 23.0 U/L (7.0-40); AST/SGOT 30.0 U/L (<34); CALCIUM LEVEL 9.1 MG/DL (8.3-10.6); CARBON DIOXIDE LEVEL 27.0 MMOL/L (20-31); CHLORIDE LEVEL 108.0 MMOL/L (98-107); CHOLESTEROL LEVEL 136.0 MG/DL (<200); CHOLESTEROL RISK RATIO 3.93 (<5); CREATININE FOR GFR 1.16 MG/DL (0.70-1.30); GLOMERULAR FILTRATION RATE 69.9 (>49); IRON (FE) 73.0 UG/DL (65-175); LDL CHOLESTEROL 71.4 MG/DL (<100); NON-HDL-C 101.4 MG/DL; PERCENT SATURATION 18.3 % (19.7-50.0); POTASSIUM SERUM 4.4 MMOL/L (3.5-5.1); SODIUM LEVEL 145.0 MMOL/L (136-145); TRIGLYCERIDES LEVEL 150.0 MG/DL (<150)
[2025-06-29 18:27] LABS: FREE T4 1.22 NG/DL (0.89-1.76)
[2025-06-29 18:54] LABS: ESTIMATED AVERAGE GLUCOSE 114.0 MG/DL (60-110)
== END ==
LOC: M SFHCCLAY 11:29
PROVIDERS: ATTEND Nurse Practitioner Family
DX: Z12.5 Encounter for screening for malignant neoplasm of prostate (principal); I10 Essential (primary) hypertension; K21.9 Gastro-esophageal reflux disease without esophagitis; I25.2 Old myocardial infarction; F41.9 Anxiety disorder, unspecified; G47.33 Obstructive sleep apnea (adult) (pediatric); E11.9 Type 2 diabetes mellitus without complications; D50.0 Iron deficiency anemia secondary to blood loss (chronic); I48.91 Unspecified atrial fibrillation
CPT/HCPCS: 80053; 80061; 82728; 83036; 83550; 84439; 84443; 85025; G0103